=== PATIENT | male | born 1955 | race Caucasian/White ===

== ENCOUNTER → 2019-09-15 09:15 | Outpatient (CLI) | payer OTHER ==
[2015-03-08 18:30] VITALS: BMI 27.6
[~2019-09-15 09:15] MED LIST: ELIQUIS2.5 MG PO; ZESTRIL10 MG PO
== END | disposition home or self-care (01) ==
LOC: D.HCCECHO 09:15
PROVIDERS: ATTEND Internal Medicine Cardiovascular Disease
DX: I10 Essential (primary) hypertension (principal)

== ENCOUNTER 2020-06-18 10:56 | Day surgery (SDC) | payer OTHER ==
[~2020-06-18] VITALS: Ht 188 cm; Wt 95.6 kg
--- NOTE | ~2020-06-18 | OP ---
PATIENT NAME: SUDHIR HANSEN JR MEDICAL RECORD: [id number] :55 LOCATION:D.CAT ADMISSION DATE: SURGEON: DAVINA ALVAREZ MD DATE OF OPERATION: 06/18/2020 PROCEDURE: Lead portion of permanent pacemaker placement. INDICATION: Sick sinus syndrome, pauses. SURGEON: Dr. Pastrana DESCRIPTION OF PROCEDURE: After left subclavian was cannulated via modified Seldinger technique via Dr. Pastrana, first under fluoroscopic guidance, placed the RV lead in the RV apex without difficulty. After adequate thresholds and R waves obtained, we placed the right atrial lead into the right atrial appendage without difficulty. Difficult to get full threshold secondary to continuous short runs of SVT; however, adequate P waves were obtained and leads attached to appropriate poles of the generator. IMPRESSION: Successful lead portion of permanent pacemaker placement of Sudhir Hansen. ESTIMATED BLOOD LOSS: Minimal. DISPOSITION: To the floor stable. COMPLICATIONS: None. TRANSINT:[id number] Voice Confirmation ID: [id number] DOCUMENT ID: [id number] DAVINA ALVAREZ MD CC: [id number] DICTATION DATE: 06/18/20 1610 RECORD CLERK SALESPERSON: 06/19/20 0009 [facility] [place] 06/18/20 [place] [id number] [place] [id number]
--- NOTE | ~2020-06-18 | HEMODYNAMI ---
PATIENT:DERIC HANSEN JR MEDICAL RECORD: [id number] : 55 LOCATION:[facility] ADMISSION DATE: 06/18/20 Generatedon:06/18/202016:26 Patient name: DERIC HANSEN Patient #: [id number] SSN: DO B: 1955 Date of study: 06/18/2020 Page: Of Hemodynamic Procedure Report Patient Data Patient Demographics Procedure consent was obtained First Name: DERIC Gender: Male Last Name: JADE Suffix: [facility] Initial: ISELA : 1955 Patient #: [id number] Age: 64 year(s) Race: Additional ID: [id number] Contact details Address: [address] [place] [address] ROAD State: [place] City: [place] Zip code: [address] Past Medical History Allergies Allergen Reaction Date Comments Reported Other allergy 06/18/2020 NKDA Admission Admission Data Admission Date: 06/18/2020 Admission Time: 10:56 Arrival Date: 06/18/2020 Arrival Time: 0:00 Insurance Payor: Private health insurance Height (in.): 74.02 BSA: 2.23 (m2) Height (cm.): 188 BMI: 27.16 (kg/m2) Weight (lbs.): 211.64 Weight (kg.): 96 Lab Results Lab Result Date: 06/18/2020 Lab Result Time: 0:00 CBC Name Units Result Min Max Hematocrit % 44.5 --(*---)-- 42 54 Hemoglobin g/dl 15.1 --(-*--)-- 13.5 17.5 Procedure Procedure Types Cath Procedure Diagnostic Procedure PPM/ICD PPM Dual Implant Sedation Charges Moderate Sedation up to 45 minutes Procedure Description Procedure Date Procedure Date: 06/18/2020 Procedure Start Time: 15:40 Procedure End Time: 16:22 Procedure Staff Name Function Luis Fernando Barker MD Performing Physician Juan Bae MD Assisting physician Elena Avina RT Monitor Nidhi Almeida RN Nurse Riddhi Kb RT Scrub Indication Sick Sinus Syndrome Procedure Data Cath Procedure Fluoroscopy Diagnostic fluoroscopy Total fluoroscopy Time: 9.9 time: 9.9 min min Diagnostic fluoroscopy Total fluoroscopy dose: dose: 339.47 mGy 339.47 mGy Estimated blood loss: 5 ml Procedure Complications No complications Procedure Medications Medication Administration Route Dosage Oxygen etCO2 Nasal cannula 2 l/min Lidocaine 1% added to field 20 Ancef (1Gm/50ml NS) I.V.P.B 1 g Ancef Irrigation Topical 1 g (1gm/500ml NS) 0.9% NaCl I.V. 50 ml/hr Versed I.V. 1 mg Fentanyl I.V. 50 mcg Versed I.V. 1 mg Fentanyl I.V. 50 mcg Versed I.V. 1 mg Fentanyl I.V. 50 mcg Versed I.V. 1 mg Fentanyl I.V. 50 mcg Hemodynamics Rest BSA: 2.23 (m2) HGB: 15.1 (g/dl) O2 Consumption: Estimated: 241.77 (ml/min) O2 Co nsumption indexed: Estimated:108.42 (ml/min/m) Heart Rate: 48 (bpm) Snapshots Pre Cath Intra NCS Post Cath Vital Signs Time Heart Resp SPO2 etCO2 NIBP (mmHg) Rhythm Pain Sedation Rate (ipm) (%) (mmHg) Status Level (bpm) 12:58:20 47 16 97 0 145/82(120) SB (Missing) 10(A) 13:03:23 47 17 97 0 140/97(107) SB (Missing) 10(A) 13:07:33 47 17 97 32.9 144/82(114) SB (Missing) 10(A) 13:11:49 47 13 95 38.2 132/77(92) SB (Missing) 10(A) 13:15:58 49 28 96 39 132/78(99) SB (Missing) 10(A) 13:20:15 49 15 97 36.7 131/62(102) SB (Missing) 10(A) 13:24:25 48 14 96 37.5 132/79(95) SB (Missing) 10(A) 13:28:35 51 13 97 32.2 141/81(111) SB (Missing) 10(A) 13:32:51 48 15 96 40.4 133/74(95) SB (Missing) 10(A) 13:37:02 48 14 96 41.9 122/75(89) SB (Missing) 10(A) 13:41:08 50 10 97 26.2 129/82(101) SB (Missing) 10(A) 13:45:16 47 11 97 26.9 131/81(96) SB (Missing) 10(A) 13:49:24 46 11 97 24.7 128/82(101) SB (Missing) 10(A) 13:53:34 46 10 97 23.9 132/76(93) SB (Missing) 10(A) 13:57:46 45 10 98 31.4 128/77(100) SB (Missing) 10(A) 14:01:52 43 14 97 36.7 129/78(97) SB (Missing) 10(A) 14:06:03 45 15 97 36.7 139/72(112) SB (Missing) 10(A) 14:10:17 45 10 97 35.9 137/80(101) SB (Missing) 10(A) 14:14:29 45 14 97 33.7 135/80(94) SB (Missing) 10(A) 14:18:41 45 10 97 29.9 132/81(90) SB (Missing) 10(A) 14:22:51 44 16 97 32.2 134/82(97) SB (Missing) 10(A) 14:27:03 43 14 97 36.7 139/78(104) SB (Missing) 10(A) 14:31:13 43 14 97 38.1 137/80(105) SB (Missing) 10(A) 14:35:27 44 12 97 38.1 127/74(90) SB 1 (11) , 10(A) Very mild 14:39:35 44 15 98 35.2 134/81(97) SB 1 (11) , 10(A) Very mild 14:43:44 45 18 97 33.7 133/82(94) SB (Missing) 10(A) 14:47:54 45 15 97 36.7 140/81(94) SB (Missing) 10(A) 14:52:04 45 13 98 26.9 140/89(105) SB (Missing) 10(A) 14:56:16 44 14 98 34.4 138/83(101) SB (Missing) 10(A) 15:00:28 43 12 98 36.7 137/82(98) SB (Missing) 10(A) 15:04:40 42 14 98 36.7 142/79(101) SB (Missing) 10(A) 15:08:54 43 12 98 38.2 139/77(101) SB (Missing) 10(A) 15:13:57 46 15 98 34.4 135/81(109) SB (Missing) 10(A) 15:19:00 44 22 98 36.7 146/81(100) SB (Missing) 10(A) 15:23:16 43 11 98 36.7 144/82(105) SB (Missing) 10(A) 15:27:26 45 17 98 37.4 138/84(102) SB (Missing) 10(A) 15:31:40 46 10 96 46.4 126/76(87) SB (Missing) 10(A) 15:35:50 45 10 96 44.9 134/76(105) SB (Missing) 10(A) 15:41:03 172 17 95 46.3 127/76(93) SB (Missing) 10(A) 15:45:13 48 15 88 41.1 138/76(93) SB (Missing) 9(A) 15:49:23 51 22 96 36.6 149/86(100) SB (Missing) 9(A) 15:53:21 47 13 96 36.6 120/83(104) SB (Missing) 9(A) 15:57:26 49 16 96 35.1 133/79(97) SB (Missing) 9(A) 16:01:38 69 14 97 37.4 121/80(94) SB (Missing) 10(A) 16:05:48 50 13 98 37.4 131/70(99) SB (Missing) 10(A) 16:09:54 80 14 97 37.4 142/94(108) SB (Missing) 10(A) 16:13:45 88 12 96 32.1 106/89(103) SB (Missing) 10(A) 16:18:36 66 12 97 37.4 139/91(104) SB (Missing) 10(A) 16:22:36 0 No Cuff SB (Missing) 10(A) Medications Time Medication Route Dose Verified Delivered Reason Notes Effectiv eness by by 13:07:15 Oxygen etCO2 2 Luis Fernando Terrell used for Nasal l/min St Damián Almeida net web application developer cannula 13:07:25 Lidocaine added 20ml Luis Fernando Martinez for local 1% to vial St Damián Bae MD anesthetic field x 2 13:07:54 0.9% NaCl I.V. 50 Luis Fernando Addisonie Per ml/hr St Damián Almeida RN physician 14:07:35 Ancef I.V.P.B 1 g Luis Fernando Terrell used for (1Gm/50ml Lucero Almeida net web application developer NS) 14:28:46 Versed I.V. 1 mg Luis Fernando Addisonie for Lucero Almeida RN anxiety 14:40:54 Fentanyl I.V. 50 Luis Fernando Buffie for back mcg Lucero Almeida RN pain 15:37:29 Versed I.V. 1 mg Luis Fernando Addisonie for Lucero Almeida RN sedation 15:37:33 Fentanyl I.V. 50 Luis Fernando Addisonie for mcg Lucero Almeida RN sedation 15:42:00 Fentanyl I.V. 50 Luis Fernando Buffie for mcg Lucero Almeida RN sedation 15:42:54 Versed I.V. 1 mg Luis Fernando Addisonie for Lucero Almeida RN sedation 15:54:01 Versed I.V. 1 mg Luis Fernando Addisonie for Lucero Almeida RN sedation 15:54:06 Fentanyl I.V. 50 Luis Fernando Buffie for mcg Lucero Almeida RN sedation 15:57:57 Ancef Topical 1 g Luis Fernando Portilloian used for Irrigation St Damián Bae MD procedure (1gm/500ml NS) Procedure Log Time Note 12:49:34 Nidhi Almeida RN sent for patient. Start room use. 12:55:18 Informed consent obtained and on chart 12:56:18 Indication : Sick Sinus Syndrome 12:56:28 Procedure Status PPM/ Gen Change/ Lead Revision/ Temp. 12:56:31 Time tracking: Regular hours (M-F 7:00 - 5:00) 12:56:54 Plan of Care:Hemodynamics will remain stable., Cardiac rhythm will remain stable., Comfort level will be maintained., Respiratory function will remain adequate., Patient/ family verbilizes understanding of procedure., Procedure tolerated without complication., Recovers from procedure without complications.. 12:57:04 Patient received from Pre/Post Procedure Room to CCL 3 Alert and oriented. Tansferred to table in Supine position. 12:57:06 Warm blankets applied, and asaf hugger turned on for patient comfort. 12:57:07 Correct patient and procedure confirmed by team. 12:57:07 ECG and BP/O2 sat monitors applied to patient. 12:57:10 Vital chart was started 12:57:12 Baseline sample Acquired. 12:57:20 Rhythm: sinus bradycardia 12:57:25 Full Disclosure recording started 12:57:26 - 12:57:32 H&P Date Dictated: 06/18/2020 H&P Addendum completed by physician on day of procedure. (MUST COMPLETE FOR ALL OUTPATIENTS), New H&P dictated by physician.. 12:57:34 Pre-procedure instructions explained to patient. 12:57:34 Pre-op teaching completed and patient verbalized understanding. 12:57:37 Family in patients room. 12:57:39 Patient NPO since Midnight. 12:57:57 Patient allergic to Other allergyNKDA 12:58:03 Is patient on blood thinner?Yes 12:58:18 ACC The patient was administered the following blood thiners within the last 24 hours: ACCLovenox, Xarelto Last dose 06-16-2020 12:59:08 Patient diabetic? No. 12:59:45 ----Pre-sedation anethsthesia assessment.---- 12:59:49 Previous problem with sedation/anesthesia? No ? 12:59:52 Snore? Yes 12:59:54 Sleep apnea? No 12:59:57 Deviated septum? Unknown 12:59:59 Opens mouth fully? Yes 13:00:01 Sticks out tongue? Yes 13:00:04 Airway obstruction? No ? 13:00:07 Dentures? No ? 13:00:24 IV patent on arrival in right forearm with 0.9% NaCl at [facility]. 13:01:02 Lab Result : Hemoglobin 15.1 g/dl 13:01:02 Lab Result : Hematocrit 44.5 % 13:01:28 Use device set KATHIA PPM 13:01:30 2-0 Ticron Multipack ([id number]) opened to sterile field. 13:01:31 3-0 Vicryl Single Pack [id number] opened to sterile field. 13:01:32 5-0 Monocryl PS2 [id number] opened to sterile field. 13:01:32 Cautery Tip Eviscerator opened to sterile field. 13:01:33 Cautery Pushbutton Pencil opened to sterile field. 13:01:34 Mepilex Dressing (960686) opened to sterile field. 13:01:54 Medtronic in store representative KALEY BURNSOE present for procedure. 13:02:12 Left chest area was prepped with chlora-prep and draped in sterile fashion 13:02:15 Alarms reviewed by R. N. 13:02:16 Sharps counted by scrub and verified by R.N. 13:07:15 Oxygen 2 l/min etCO2 Nasal cannula was administered by Nidhi Almeida RN; used for procedure; Verbal order read back and verified. 13:07:25 Lidocaine 1% 20ml vial x 2 added to field was administered by Juan Bae MD; for local anesthetic; Verbal order read back and verified. 13:07:54 0.9% NaCl 50 ml/hr I.V. was administered by Nidhi Almeida RN; Per physician; Verbal order read back and verified. 13:11:11 Immobilizer Large opened to sterile field. 13:14:12 Arrival Date: 06/18/2020 12:00:00 AM 13:14:27 Patient Height : 74.02 inches 13:14:35 Patient Weight : 211.64 lbs 13:14:50 Insurance Payor : Private health insurance 13:34:06 CASE DELAYED DUE TO SURGEON, UNFORSEEN CIRCUMSTANCE IN OR CASE. 13:50:41 Pre sharps counted by scrub and verified by RN: Sutures: 7; Sponges: 5; Stick needles: 2; Skin needles: 2; Blade: 1; Cautery: 1 13:50:49 Grounding pad site Left thigh. 13:50:52 Grounding pad site free from injury. 13:51:16 Medtronic 4074-58 PPM Lead opened to sterile field. 13:51:17 Medtronic 4574-53 PPM Lead opened to sterile field. 13:53:[address] Generator [id number] opened to sterile field. 14:07:35 Ancef (1Gm/50ml NS) 1 g I.V.P.B was administered by Nidhi Almeida RN; use d for procedure; Verbal order read back and verified. 14:28:46 Versed 1 mg I.V. was administered by Nidhi Almeida RN; for anxiety; Verba l order read back and verified. 14:40:54 Fentanyl 50 mcg I.V. was administered by Nidhi Almeida RN; for back pain; Verbal order read back and verified. 15:34:43 DR. BAE IS ON WAY. 15:36:31 Physician arrived 15:36:31 --------ALL STOP TIME OUT------ 15:36:33 Final Timeout: patient, procedure, and site verified with staff and physician. All members of the team are in agreement. 15:36:40 Left chest site verified by team. 15:36:46 Fire Safety Assessment: A--An alcohol-based skin anteseptic being used preoperatively., C--Open oxygen or nitrous oxide is being used., D--An ESU, laser, or fiber-optic light is being used. 15:36:52 Physical assessment completed. ASA score P 2 - A patient with mild systemic disease as per Luis Fernando Barker MD. 15:37:00 Sedation plan: IV Moderate Sedation Medication:Versed, Fentanyl 15:37:29 Versed 1 mg I.V. was administered by Nidhi Almeida RN; for sedation; Verbal order read back and verified. 15:37:33 Fentanyl 50 mcg I.V. was administered by Nidhi Almeida RN; for sedation; Verbal order read back and verified. 15:39:02 Procedure started. 15:40:10 Lidocaine 1% was administered to left subclavicular area by Juan Bae MD . 15:40:57 Incision made to left subclavicular area. 15:42:00 Fentanyl 50 mcg I.V. was administered by Nidhi Almeida RN; for sedation; Verbal order read back and verified. 15:42:54 Versed 1 mg I.V. was administered by Nidhi Almeida RN; for sedation; Verbal order read back and verified. 15:43:19 Generator pocket made/opened. 15:44:01 Left subclavian vein accessed with 7Fr Peel Away Sheath. 15:44:07 Left subclavian vein accessed with 7Fr Peel Away Sheath. 15:47:55 Ventricular lead inserted and advanced. 15:48:00 Atrial lead inserted and advanced. 15:48:13 Ventricular lead positioned. 15:48:19 Ventricular lead tested. 15:48:24 Atrial lead positioned. 15:48:28 Atrial lead tested. 15:54:01 Versed 1 mg I.V. was administered by Nidhi Almeida RN; for sedation; Verbal order read back and verified. 15:54:06 Fentanyl 50 mcg I.V. was administered by Nidhi Almeida RN; for sedation; Verbal order read back and verified. 15:57:57 Ancef Irrigation (1gm/500ml NS) 1 g Topical was administered by Juan Bae MD; used for procedure; Verbal order read back and verified. 16:04:31 Peel-a-way sheath was split and removed. 16:04:33 Peel-a-way sheath was split and removed. 16:05:04 PPM Dual was attached to lead(s) and inserted into pocket. 16:05:55 Atrial lead attachment was completed with 2-0 ticron. 16:06:01 Ventricular lead attachment was completed with 2-0 ticron. 16:06:13 Generator was sutured in place with 2-0 ticron. 16:08:25 PPM Dual was inserted subcutaneously to left chest. 16:08:41 Device pocket was irrigated with Ancef. 16:09:32 Subcutaneous closure was completed with 3-0 vicryl plus. 16:11:55 Skin closure was completed with 5-0 monocryl. 16:15:01 Parameters-- Generator: Mode: AAIR-DDDR. Lower Rate: 60bpm. Upper Rate: 130bpm. 16:15:45 Parameters--Ventricular P/R Wave: 3.8mV. Current: ?mA; Threshold: 0.3V ; Impedence: 1466OHMS. 16:18:00 Parameters--Atrial P/R Wave: 1.6mV. Current: ?mA; Threshold: 0.5V; Impedence: 577OHMS. 16:18:08 Lt Chest incision was dressed with Mepilex dressing. 16:18:24 Post sharps counted by scrub and verified by RN: Sutures: 7; Sponges: 5 ; Stick needles: 2; Skin needles: 2; Blade: 1; Cautery: 1 16:18:31 Procedure ended.(Physican Out) 16:18:41 Fluoroscopy time 09.90 minutes. 16:18:51 Fluoroscopy dose: 339.47 mGy 16:18:51 Flurop Dose total: 339.47 16:19:02 Dose Area Product 3917.49 mGy/cm. 16:19:07 Sharps counted by scrub and verified by R.N. 16:19:10 Insertion/operative site no bleeding no hematoma. 16:19:23 Post Chest area:stable 16:19:28 Post-procedure physical assessment completed. ASA score P 2 - A patient with mild systemic disease as per Luis Fernando Barker MD. 16:19:34 Post procedure rhythm: paced 16:19:38 Estimated blood loss: 5 ml 16:19:41 Post procedure instruction explained to patient.Patient verbalizes understanding. 16:19:42 Patient needs reinforcement of post procedure teaching. 16:21:51 Procedure type changed to Cath procedure, Diagnostic procedure, PPM/ICD , PPM Dual Implant, Sedation Charges, Moderate Sedation up to 45 minutes 16:21:53 Procedure and supply charges have been captured, reviewed, submitted an d are correct. 16:22:22 Procedure Complication : No complications 16:22:28 Operative report dictated upon procedure completion. 16:22:30 See physician's report for complete and final results. 16:22:33 Report given to Pre/Post Procedure Room. 16:22:37 Patient transfered to Pre/Post Procedure Room with Stretcher. 16:22:41 Procedure ended. 16:22:41 Full Disclosure recording stopped 16:22:45 End room use (Document Last) 16:26:44 Vital chart was stopped Device Usage Item Name Manufacture Quantity Catalog Hospital Part Current Minima l Lot# / Number Charge Number Stock Stock Serial# Code 2-0 Ticron Ethicon 6 [id number] [id number] [id number] 5 Multipack ([id number]) 3-0 Vicryl Ethicon 1 [id number] 466811 785617 5 Single Pack [id number] 5-0 Monocryl Ethicon 1 [id number] 052052 456190 522958 5 PS2 Y495G Cautery Tip Microtek 1 [id number] 080953 837384 106693 5 [employer]vis[employer] Cautery Microtek 1 [id number] 741043 47540 891142 5 Pushbutton [employer] Pencil Mepilex Cardinal 1 064872 617171 460851 329496 [address] [facility] ([id number]) Immobilizer Cardinal 1 [id number] 504527 102858 028968 [address] [facility] Medtronic Medtronic 1 4074-58 450303 461586 540356 5 4074-58 PPM [id number] Lead 11-20 Medtronic Medtronic 1 4574-53 936233 997891 899000 5 4574-53 PPM [id number] Lead 09-12 Medtronic Medtronic 1 [id number] 937525 7475072 9679[address] [id number] Generator 10-14 W1 Signature Audit [place] Stage Time Signature Unsigned Intra-Procedure 06/18/2020 Elena 4:23:09 PM Kailyn RT(R) (CV) Intra-Procedure 06/18/2020 Nidhi Almeida RN 4:26:15 PM Intra-Procedure 06/18/2020 Luis Fernando Pena 4:26:42 PM Damián [place] [address] [place] [address]
--- NOTE | ~2020-06-18 | OP ---
PATIENT NAME: DERIC HANSEN JR MEDICAL RECORD: [id number] :55 LOCATION:D.CAT ADMISSION DATE: SURGEON: JADYN BAE MD DATE OF OPERATION: 06/18/2020 PREOPERATIVE DIAGNOSIS: Sick sinus syndrome with pauses. POSTOPERATIVE DIAGNOSIS: Sick sinus syndrome with pauses. PROCEDURE: Left subclavian vein dual lead pacemaker placement. SURGEON: Jadyn Bae MD CO-SURGEON: Luis Fernando Fried MD REPORT OF PROCEDURE: The patient's left chest was prepped and draped in sterile fashion. A total of 20 mL of 1% lidocaine with epinephrine was infused into the surrounding tissues. A transverse incision was made on the left superior lateral chest and a subcutaneous pouch was made over the pectoral fascia. Needle was used to cannulate the left subclavian vein and guidewires were advanced with ease. Fluoro was used to note that the wires were in good position in the venous system. Dilator trocar devices were placed over the wires and the wires and dilators were removed. The leads were advanced until they were found to be in the superior vena cava. At this point, Dr. Fried positioned the leads appropriately in atrium and ventricle. Once the leads were noted to be in good position and they were sutured into place with 2-0 TiCron, the leads were affixed to the pacemaker, which was placed into the subcutaneous pouch and sutured down with a single interrupted 2-0 TiCron. We irrigated out the wound bed with antibiotic solution. The subcutaneous tissues were reapproximated with interrupted 3-0 Vicryl and the skin was closed with running subcutaneous 5-0 Monocryl. COMPLICATIONS: None. CONDITION: Stable. ANESTHESIA: Local MAC. BLOOD LOSS: Minimal. TRANSINT:[id number] Voice Confirmation ID: [id number] DOCUMENT ID: [id number] JADYN BAE MD CC: [id number] DICTATION DATE: 06/18/20 162 SENIOR HYDROGEOLOGIST: 06/19/20 0012 [facility] 06/18/[address] [address]
[2020-06-18] MEDS ORDERED: XARELTO20 MG PO (11:23)
[2020-06-18] MEDS ORDERED: LOVENOX INJ100 MG/ML SC (11:24)
[2020-06-18 11:28] VITALS: BP 158/80; Ht 188 cm; Wt 95.6 kg
[2020-06-18 11:40] LABS: HEMATOCRIT 44.5 % (42.0-54.0); HEMOGLOBIN 15.1 g/dL (13.5-17.5); MCH 29.7 pg (26.0-34.0); MCHC 33.9 g/dL (31.0-37.0); MCV 87.6 fL (80.0-100.0); MEAN PLATELET VOLUME 10.3 fL (7.4-10.4); RBC 5.08 10x6/uL (4.20-6.10); RDW 13.3 % (11.5-14.5)
[2020-06-18 11:47] LABS: ANION GAP 7.3 mmol/L (8-16); CARBON DIOXIDE 28.8 mmol/L (21.0-32.0); CREATININE - SERUM 1.2 mg/dL (0.6-1.3); POTASSIUM - SERUM 4.1 mmol/L (3.5-5.1)
[2020-06-18 11:48] LABS: APTT 35.5 SECONDS (22.8-39.4); INR 0.97 (0.85-1.17); PROTIME 12.9 SECONDS (11.6-15.0)
--- NOTE | 2020-06-18 16:30 | NUR ---
PT RECEIVED VIA STRETCHER FROM SECURITY SUPERVISOR POST PACEMAKER PLACEMENT. PT AWAKE AND ALERT, PT DENIES PAIN OR DISCOMFORT. MEDIPLEX DRESSING TO U LEFT CHEST, NO BLEEDING OR SWELLING NOTED. L ARM IN SLING. PT PLACED ON CARDIAC MONITORS, HR PACED AT 60, BP 115/77, RR 15, SAT 97 ON ROOM AIR. IV PATENT INFUSING VIA ORDERS TO R ARM. CALL LIGHT IN REACH, AT BS
--- NOTE | 2020-06-18 16:50 | NUR ---
PT RESTING W/O COMPLAINTS. HR 105, BP 115/77, RR 14, SAT 95. MEDIPLEX DRESSING REMAINS CDI NO S/S BLEEDING. PT TOLERATING PO FOOD AND LIQUIDS W/O DIFFICULITY. CALL LIGHT IN REACH, AT BS
--- NOTE | 2020-06-18 16:57 | NUR ---
XRAY AT BS PER ORDERS
--- NOTE | 2020-06-18 17:10 | NUR ---
PT STATES " I KEEP FEELING MY CHEST JUMPING" DR ALVAREZ NOTIFIED. 1715 DR. ALVAREZ AT BEDSIDE, ADJUSTING PACEMAKER. NO NEW ORDERS WILL PROCEED WITH DISCHARGE. PT HEART RATE GOING IN AND OUT OF RHYTHM. AFTER ADJUSTMENT PT STATES "IT HAS STOPPED JUMPING NOW"
--- NOTE | 2020-06-18 17:29 | NUR ---
DISCHARGE INSTRUCTIONS REVIEWED W PT AND , BOTH VERBALIZED UNDERSTANDING. IV REMOVED W CATH INTACT, MONITORS REMOVED AND PT UP TO DRESS
--- NOTE | 2020-06-18 17:41 | NUR ---
PT DISCHARGED VIA WC TO WAITING IN PRIVATE VEHICLE. PT HAD ALL BELONGINGS AND DISCHARGE PAPERWORK
== END 2020-06-18 17:40 | disposition home or self-care (01) ==
LOC: D.CATH 10:56
PROVIDERS: ATTEND Internal Medicine Interventional Cardiology
DX: I49.5 Sick sinus syndrome (principal); Z95.0 Presence of cardiac pacemaker; R00.9 Unspecified abnormalities of heart beat; E78.5 Hyperlipidemia, unspecified; I10 Essential (primary) hypertension